=== PATIENT | male | born 1950 | race Two or more races ===

== ENCOUNTER 2023-12-18 16:09 | Inpatient (IN) | payer OTHER ==
[~2023-12-18] VITALS: Ht 180.3 cm; Wt 79.4 kg
[~2023-12-18 16:09] MED LIST: IRBESARTAN75 MG PO; LASIX20 MG; METHYLPREDNISOLO8 MG; METHYLPREDNISOLO8 MG PO; MORGIDOX100 MG; SYMBICORT 80/10.2 GM IH; THIAMINE HCL100 MG PO; TOPROL XL50 M1; TOPROL XL50 M1 PO; XARELTO20 MG PO
--- NOTE | 2023-12-18 16:46 | NUR ---
SE RECIBE PACIENTE EN AMBULANCIA ALERTA Y ORIENTADO EN PERSONA. FAMILIAR REFIERE QUE PRESENTA DEBILIDAD. SE MONITOREAN VS Y SE REALIZA EKG.
[2023-12-18] MEDS ORDERED: RINGERS SOLUTION,LACTATED 1,000 ML IV STA (18:06)
[2023-12-18] MEDS ORDERED: FLUMAZENIL 0.5 MG/5 ML ML IV STA (18:21)
[2023-12-18] MEDS ORDERED: NALOXONE HCL 0.4 MG/ML AMPUL IV STA (18:22)
--- NOTE | 2023-12-18 18:26 | NUR ---
PACIENTE EVALUADO POR DR. HUTCHINSON QUI[place] [facility], RN ELIZONDO EDUCA ACERCA DEL MISMO A FAMILIAR Y REFIERE ENTENDER. SE CANALIZA Y COLECTAN MUESTRAS DE LABORATORIO MEDIANTE MEDIDAS ASEPTICAS. SE ADMIONISTRAN MEDICAMENTOS RAHUL ORDEN MEDICA. SE COLCOA ROSA MEDIANTE MEDIDAS ESTERILES.
[2023-12-18] MEDS ORDERED: NALOXONE HCL 0.4 MG/ML AMPUL ONE (18:38)
[2023-12-18] MEDS ORDERED: FLUMAZENIL 0.5 MG/5 ML ML IV ONE (18:39)
[2023-12-18 18:50] LABS: HEMOGLOBIN 11.6 g/dL (13-16.00); MEAN CELL VOLUME 92.2 fL (80.0-100.00); MEAN CORPUSCULAR HEMOGLOBIN 33.4 pg (27.00-32.0); MEAN CORPUSCULAR HGB CONC 36.3 g/dl (32.0-36.0); PLATELET COUNT 394 K/uL (150-450); RED BLOOD COUNT 3.47 M/uL (4.00-6.00)
[2023-12-18 18:51] LABS: URINE APPEARANCE Cloudy; URINE BILIRRUBIN Negative (NEGATIVE); URINE BLOOD Negative; URINE COLOR Dark Yellow; URINE GLUCOSE Negative (NEGATIVE); URINE LEUKOCYTE Negative; URINE NITRATE Negative; URINE PROTEIN Negative (NEGATIVE)
[2023-12-18 18:52] LABS: URINE BACTERIA 117.1 uL (0.0-1933); URINE EPITHELIAL CELLS 9.2 uL (0.0-38.8); URINE RBC 9.1 uL (0.0-20.8); URINE WBC 16.6 uL (0.0-23.2)
[2023-12-18 18:54] LABS: ERYTHROCYTE SEDIMENTATION RATE 27 mm/hr
[2023-12-18 19:16] LABS: ALBUMIN 2.9 gm/dL (3.4-5.0); BILIRUBIN TOTAL 2.29 mg/dL (0.3-1.2); CALCIUM 8.7 mg/dL (8.5-10.1); CREATININE SERUM 0.83 mg/dL (0.70-1.30); GFR 90.57; GLOBULINA 3.8 G/DL (2.4-3.5); POTASSIUM 4.52 mEq/L (3.5-5.1); TOTAL PROTEIN 6.7 gm/dL (6.4-8.2)
[2023-12-18 19:22] LABS: INR 1.37; PROTHROMBIN TIME 14.1 SECONDS (9.0-11.5)
[2023-12-18 19:25] LABS: PARTIAL THROMBOPLASTIN TIME 42.1 SECONDS (22.0-34.0)
[2023-12-18] MEDS ORDERED: FUROsemide 20 MG/2 ML VIAL IV SCH (22:45)
[2023-12-18] MEDS ORDERED: 0.9 % SODIUM CHLORIDE 1,000 ML IV SCH (22:45)
[2023-12-18] MEDS ORDERED: ACETAMINOPHEN 500 MG GEL..CAP PO PRN (22:45)
[2023-12-18] MEDS ORDERED: FAMOTIDINE/PF 20 MG in 0.9 % SODIUM CHLORIDE 8 ML IV PUSH SCH (22:46)
[2023-12-18] MEDS ORDERED: levoFLOXacin IN DEXTROSE 5 % 150 ML IV SCH (22:46)
[2023-12-18] MEDS ORDERED: THIAMINE HCL 100 MG/ML 2 ML VIAL IV ONE (23:00)
[2023-12-19] MEDS ORDERED: FUROsemide 20 MG/2 ML VIAL ONE (00:40)
[2023-12-19] MEDS ORDERED: FAMOTIDINE/PF 20 MG/2 ML VIAL ONE ×2 (00:40→17:21)
[2023-12-19] MEDS ORDERED: THIAMINE HCL 100 MG/ML 2 ML VIAL ONE (00:40)
[2023-12-19 02:17] LABS: INR 1.37; PROTHROMBIN TIME 14.1 SECONDS (9.0-11.5)
[2023-12-19 02:18] LABS: PARTIAL THROMBOPLASTIN TIME 44.5 SECONDS (22.0-34.0)
[2023-12-19] MEDS ORDERED: RIVAROXABAN 20 MG TABLET PO SCH (09:00)
[2023-12-19] MEDS ORDERED: METOPROLOL SUCCINATE 50 MG TAB.SR.24H PO SCH (09:00)
[2023-12-19 09:48] LABS: CALCIUM 8.6 mg/dL (8.5-10.1); CREATININE SERUM 0.88 mg/dL (0.70-1.30); GFR 84.65; POTASSIUM 3.88 mEq/L (3.5-5.1)
[2023-12-19] MEDS ORDERED: CLINDAMYCIN PHOSPHATE 150 MG/ML (600mg) IV SCH (17:00)
[2023-12-19] MEDS ORDERED: LACTOBACILLUS ACIDOPHILUS 1 CAP CAP PO SCH (17:00)
[2023-12-19] MEDS ORDERED: CLINDAMYCIN PHOSPHATE 150 MG/ML (300mg) ONE (17:21)
[2023-12-19] MEDS ORDERED: LACTOBACILLUS ACIDOPHILUS 1 CAP CAP PO ONE (17:21)
[2023-12-19] MEDS ORDERED: FAMOTIDINE/PF 20 MG in 0.9 % SODIUM CHLORIDE 8 ML IV PUSH SCH (21:00)
[2023-12-20 05:19] LABS: HEMATOCRIT 30.1 % (39.0-48.0); MEAN CELL VOLUME 92.8 fL (80.0-100.00); MEAN CORPUSCULAR HEMOGLOBIN 33.8 pg (27.00-32.0); MEAN CORPUSCULAR HGB CONC 36.4 g/dl (32.0-36.0); PLATELET COUNT 315 K/uL (150-450); RED BLOOD COUNT 3.25 M/uL (4.00-6.00); RED CELL DISTRIBUTION WIDTH 13.5 % (11.5-14.5)
[2023-12-20 06:23] LABS: ALBUMIN 2.4 gm/dL (3.4-5.0); CALCIUM 8.4 mg/dL (8.5-10.1); CREATININE SERUM 0.72 mg/dL (0.70-1.30); GFR 106.71; GLOBULINA 3.4 G/DL (2.4-3.5); MAGNESIUM 1.7 mg/dL (1.8-2.4); PHOSPHOROUS 2.7 mg/dL (2.5-4.9); POTASSIUM 3.16 mEq/L (3.5-5.1); TOTAL PROTEIN 5.8 gm/dL (6.4-8.2)
[2023-12-20 06:28] LABS: C-REACTIVE PROTEIN 12.6 MG/DL (0.00-0.29)
[2023-12-20 08:47] LABS: URIC ACID 2.1 mg/dL (3.5-8.5)
[2023-12-20 08:57] LABS: TSH 1.11 uIU/mL (0.358-3.74)
[2023-12-20] MEDS ORDERED: FUROsemide 20 MG/2 ML VIAL IV SCH (09:00)
[2023-12-20] MEDS ORDERED: POTASSIUM CHLORIDE IN WATER 100 ML IV NR (15:15)
[2023-12-20] MEDS ORDERED: MAGNESIUM SULFATE 1,000 MG in 0.9 % SODIUM CHLORIDE 50 ML IV NR (16:30)
[2023-12-20] MEDS ORDERED: MAGNESIUM SULFATE 50% 1,000 MG/2 ML VIAL ONE ×2 (17:09→17:20)
[2023-12-20] MEDS ORDERED: LORazepam 2 MG/ML VIAL IV PUSH PRN (23:45)
[2023-12-21 07:54] LABS: ALBUMIN 2.6 gm/dL (3.4-5.0); CALCIUM 8.4 mg/dL (8.5-10.1); CREATININE SERUM 0.61 mg/dL (0.70-1.30); GFR 129.21; MAGNESIUM 2.1 mg/dL (1.8-2.4); PHOSPHOROUS 2.6 mg/dL (2.5-4.9); POTASSIUM 3.67 mEq/L (3.5-5.1)
[2023-12-21] MEDS ORDERED: HALOPERIDOL LACTATE 5 MG/ML AMPUL IV STA (12:48)
[2023-12-21] MEDS ORDERED: DIPHENHYDRAMINE HCL 50 MG/ML VIAL 1ML IV STA (12:48)
[2023-12-21] MEDS ORDERED: hydrALAZINE HCL 20 MG VIAL IV PRN (14:00)
[2023-12-21 14:49] LABS: ABG PO2 60.5 mmHg (80-100); ABG pCO2 29.4 mmHg (35-45); BASE EXCESS -0.9 mmol/l; BICARBONATE 21.4 mmol/l (23-25); SaO2 92.7 %; Tco2 22.3 mmol/l
[2023-12-21 14:50] LABS: allen test SATISFACTORY; o2 30 %; puncture site RADIAL RIGHT
[2023-12-21] MEDS ORDERED: NICOTINE 21MG/24HR PATCH.TD24 TD SCH (17:00)
[2023-12-21 17:41] LABS: ABG PH 7.488 (7.35-7.45); ABG PO2 63.6 mmHg (80-100); BASE EXCESS -1.2 mmol/l; SaO2 93.7 %
[2023-12-21 17:42] LABS: BICARBONATE 20.7 mmol/l (23-25); Tco2 21.6 mmol/l; allen test SATISFACTORY; o2 30 %; puncture site RADIAL LEFT
[2023-12-22 08:05] LABS: ALBUMIN 2.4 gm/dL (3.4-5.0); CALCIUM 8.4 mg/dL (8.5-10.1); CREATININE SERUM 0.71 mg/dL (0.70-1.30); GFR 108.45
[2023-12-22 08:33] LABS: POTASSIUM 3.82 mEq/L (3.5-5.1)
[2023-12-22 08:58] LABS: HEMATOCRIT 28.8 % (39.0-48.0); HEMOGLOBIN 10.5 g/dL (13-16.00); MEAN CELL VOLUME 91.9 fL (80.0-100.00); MEAN CORPUSCULAR HEMOGLOBIN 33.4 pg (27.00-32.0); MEAN CORPUSCULAR HGB CONC 36.4 g/dl (32.0-36.0); PLATELET COUNT 281 K/uL (150-450); RED BLOOD COUNT 3.14 M/uL (4.00-6.00); RED CELL DISTRIBUTION WIDTH 13.3 % (11.5-14.5)
[2023-12-22 09:16] LABS: ALBUMIN 2.3 gm/dL (3.4-5.0); BILIRUBIN TOTAL 1.99 mg/dL (0.3-1.2); CALCIUM 8.2 mg/dL (8.5-10.1); CREATININE SERUM 0.54 mg/dL (0.70-1.30); GFR 148.73; GLOBULINA 3.3 G/DL (2.4-3.5); MAGNESIUM 1.7 mg/dL (1.8-2.4); PHOSPHOROUS 2.8 mg/dL (2.5-4.9); POTASSIUM 3.08 mEq/L (3.5-5.1); TOTAL PROTEIN 5.6 gm/dL (6.4-8.2)
[2023-12-22 09:18] LABS: ABG PH 7.489 (7.35-7.45); ABG PO2 102.7 mmHg (80-100); ABG pCO2 29.1 mmHg (35-45); BASE EXCESS -0.4 mmol/l; BICARBONATE 21.7 mmol/l (23-25); SaO2 98.4 %; Tco2 22.6 mmol/l
[2023-12-22 09:19] LABS: allen test SATISFACTORY; o2 40 %; puncture site RADIAL RIGHT
[2023-12-22] MEDS ORDERED: MAGNESIUM SULFATE/D5W 100 ML IV NR (09:45)
[2023-12-22] MEDS ORDERED: POTASSIUM CHLORIDE IN WATER 100 ML IV NR (09:45)
[2023-12-22] MEDS ORDERED: DILTIAZEM HCL 50 MG/10 ML VIAL IV ONE (17:45)
[2023-12-22] MEDS ORDERED: DILTIAZEM HCL 125 MG in 0.9 % SODIUM CHLORIDE 100 ML IV SCH (17:45)
[2023-12-23] MEDS ORDERED: METOPROLOL TARTRATE 50 MG TABLET PO SCH ×2 (01:00→09:00)
[2023-12-24 07:02] LABS: HEMATOCRIT 27.7 % (39.0-48.0); MEAN CELL VOLUME 92.7 fL (80.0-100.00); MEAN CORPUSCULAR HEMOGLOBIN 33.5 pg (27.00-32.0); MEAN CORPUSCULAR HGB CONC 36.1 g/dl (32.0-36.0); PLATELET COUNT 229 K/uL (150-450); RED BLOOD COUNT 2.99 M/uL (4.00-6.00); RED CELL DISTRIBUTION WIDTH 13.8 % (11.5-14.5)
[2023-12-24 07:50] LABS: ALBUMIN 2.3 gm/dL (3.4-5.0); BILIRUBIN TOTAL 2.24 mg/dL (0.3-1.2); CALCIUM 8.3 mg/dL (8.5-10.1); CREATININE SERUM 0.68 mg/dL (0.70-1.30); GFR 113.99; GLOBULINA 3.1 G/DL (2.4-3.5); MAGNESIUM 2.1 mg/dL (1.8-2.4); PHOSPHOROUS 4.4 mg/dL (2.5-4.9); POTASSIUM 3.69 mEq/L (3.5-5.1); TOTAL PROTEIN 5.4 gm/dL (6.4-8.2)
[2023-12-24 07:51] LABS: C-REACTIVE PROTEIN 18.8 MG/DL (0.00-0.29)
[2023-12-24 07:59] LABS: ABG PH 7.471 (7.35-7.45); ABG PO2 70.2 mmHg (80-100); ABG pCO2 30.4 mmHg (35-45); BASE EXCESS -0.9 mmol/l; BICARBONATE 21.6 mmol/l (23-25)
[2023-12-24 08:00] LABS: Tco2 22.6 mmol/l; allen test SATISFACTORY; o2 40 %; puncture site RADIAL RIGHT
[2023-12-24] MEDS ORDERED: ENOXAPARIN SODIUM 80 MG/0.8 ML SYRINGE SUBCUTANEO SCH (09:02)
[2023-12-24] MEDS ORDERED: THIAMINE HCL 100 MG/ML 2 ML VIAL IV SCH (09:49)
[2023-12-24] MEDS ORDERED: NICOTINE 21MG/24HR PATCH.TD24 TD SCH (17:00)
[2023-12-25 07:14] LABS: URINE APPEARANCE Clear; URINE BILIRRUBIN Small (NEGATIVE); URINE BLOOD Large; URINE COLOR Orange; URINE GLUCOSE Negative (NEGATIVE); URINE LEUKOCYTE Trace; URINE NITRATE Negative
[2023-12-25 07:15] LABS: URINE BACTERIA 27.7 uL (0.0-1933); URINE EPITHELIAL CELLS 20.7 uL (0.0-38.8); URINE RBC 459.9 uL (0.0-20.8)
[2023-12-25 07:38] LABS: URINE PROTEIN 100 (NEGATIVE)
[2023-12-25 07:39] LABS: URINE MUCUS MODERATE
[2023-12-25 10:11] LABS: ABG PH 7.493 (7.35-7.45); ABG pCO2 27.5 mmHg (35-45)
[2023-12-25 10:12] LABS: ABG PO2 52.6 mmHg (80-100); BASE EXCESS -1.2 mmol/l; BICARBONATE 20.6 mmol/l (23-25); SaO2 89.8 %; Tco2 21.4 mmol/l; allen test SATISFACTORY; o2 50 %; puncture site RADIAL RIGHT
[2023-12-25 10:42] LABS: HEMATOCRIT 28.4 % (39.0-48.0); HEMOGLOBIN 10.1 g/dL (13-16.00); MEAN CELL VOLUME 93.1 fL (80.0-100.00); MEAN CORPUSCULAR HGB CONC 35.4 g/dl (32.0-36.0); PLATELET COUNT 171 K/uL (150-450); RED BLOOD COUNT 3.05 M/uL (4.00-6.00); RED CELL DISTRIBUTION WIDTH 13.8 % (11.5-14.5)
[2023-12-25 11:29] LABS: ALBUMIN 2.2 gm/dL (3.4-5.0); BILIRUBIN TOTAL 1.83 mg/dL (0.3-1.2); CALCIUM 8.6 mg/dL (8.5-10.1); CREATININE SERUM 0.62 mg/dL (0.70-1.30); GFR 126.81; GLOBULINA 3.6 G/DL (2.4-3.5); MAGNESIUM 2.1 mg/dL (1.8-2.4); PHOSPHOROUS 3.8 mg/dL (2.5-4.9); POTASSIUM 3.02 mEq/L (3.5-5.1); TOTAL PROTEIN 5.8 gm/dL (6.4-8.2)
[2023-12-25] MEDS ORDERED: MEROPENEM 500 MG/VIAL VIAL IV SCH (18:00)
[2023-12-25] MEDS ORDERED: VANCOMYCIN HCL 1,000 MG VIAL IV SCH (21:00)
[2023-12-26] MEDS ORDERED: LEVALBUTEROL HCL 0.63 MG/3 ML SOLUTION IH SCH (09:03)
[2023-12-26] MEDS ORDERED: METOPROLOL TARTRATE 25 MG TABLET PO SCH (17:00)
[2023-12-26] MEDS ORDERED: METOPROLOL TARTRATE 100 MG TABLET PO SCH (17:00)
[2023-12-26] MEDS ORDERED: CHLORDIAZEPOXIDE HCL 25 MG CAPSULE PO SCH (18:37)
[2023-12-27] MEDS ORDERED: THIAMINE HCL 100 MG TABLET PO SCH (09:00)
[2023-12-27] MEDS ORDERED: IPRATROPIUM BROMIDE 0.5 MG/2.5 ML AMPUL.NEB IH SCH (09:00)
[2023-12-27 16:02] LABS: CALCIUM 8.3 mg/dL (8.5-10.1); CREATININE SERUM 0.58 mg/dL (0.70-1.30); GFR 136.96
[2023-12-27 16:12] LABS: POTASSIUM 2.38 mEq/L (3.5-5.1)
[2023-12-27] MEDS ORDERED: AA 5 %/CALCIUM/LYTES/DEXT 20 % 2,000 ML CENTRAL SCH (17:00)
[2023-12-27] MEDS ORDERED: POTASSIUM CHLORIDE IN WATER 40 MEQ/100 ML PIGGYBAG IV SCH (17:00)
[2023-12-28 07:25] LABS: ALBUMIN 2.3 gm/dL (3.4-5.0); CALCIUM 8.4 mg/dL (8.5-10.1); CREATININE SERUM 0.56 mg/dL (0.70-1.30); GFR 142.62; MAGNESIUM 2.1 mg/dL (1.8-2.4); PHOSPHOROUS 2.2 mg/dL (2.5-4.9); POTASSIUM 3.24 mEq/L (3.5-5.1)
[2023-12-28 10:35] LABS: MAGNESIUM 2.3 mg/dL (1.8-2.4); PHOSPHOROUS 2.5 mg/dL (2.5-4.9)
[2023-12-28] MEDS ORDERED: POTASSIUM CHLORIDE IN WATER 100 ML IV SCH (12:00)
[2023-12-28] MEDS ORDERED: DILTIAZEM HCL 125 MG in 0.9 % SODIUM CHLORIDE 100 ML IV SCH (19:00)
[2023-12-28] MEDS ORDERED: LORazepam 2 MG/ML VIAL IV PUSH PRN (20:45)
[2023-12-29] MEDS ORDERED: FUROsemide 20 MG/2 ML VIAL IV STA (08:38)
[2023-12-29] MEDS ORDERED: IPRATROPIUM BROMIDE 0.5 MG/2.5 ML AMPUL.NEB IH SCH (12:00)
[2023-12-29 14:10] LABS: ABG PH 7.358 (7.35-7.45); ABG PO2 83.9 mmHg (80-100); ABG pCO2 51.3 mmHg (35-45); SaO2 95.8 %
[2023-12-29 14:12] LABS: BASE EXCESS 1.7 mmol/l; BICARBONATE 28.2 mmol/l (23-25); Tco2 29.8 mmol/l
[2023-12-29 14:14] LABS: allen test SATISFACTORY; o2 40 %; puncture site RADIAL RIGHT
[2023-12-29 18:06] LABS: ABG PH 7.389 (7.35-7.45); ABG PO2 162.5 mmHg (80-100); ABG pCO2 49.7 mmHg (35-45); BASE EXCESS 3.3 mmol/l; BICARBONATE 29.3 mmol/l (23-25); SaO2 99.4 %; Tco2 30.8 mmol/l
[2023-12-29 21:03] LABS: allen test SATISFACTORY; o2 100 %; puncture site RADIAL RIGHT
[2023-12-30 06:54] LABS: ALBUMIN 1.9 gm/dL (3.4-5.0); BILIRUBIN TOTAL 0.64 mg/dL (0.3-1.2); BILIRUBIN,CONJUGATED 0.33 mg/dL (0.0-0.2); BILIRUBIN,UNCONJUGATED 0.31 mg/dL (0.0-0.6); CALCIUM 8.2 mg/dL (8.5-10.1); CREATININE SERUM 0.47 mg/dL (0.70-1.30); GFR 174.57; GLOBULINA 3.1 G/DL (2.4-3.5); MAGNESIUM 2.3 mg/dL (1.8-2.4); POTASSIUM 3.29 mEq/L (3.5-5.1)
[2023-12-30 07:20] LABS: HEMATOCRIT 29.3 % (39.0-48.0); MEAN CELL VOLUME 96.4 fL (80.0-100.00); MEAN CORPUSCULAR HGB CONC 34.2 g/dl (32.0-36.0); RED BLOOD COUNT 3.03 M/uL (4.00-6.00); RED CELL DISTRIBUTION WIDTH 13.8 % (11.5-14.5)
[2023-12-30 07:33] LABS: PLATELET COUNT 61 K/uL (150-450)
[2023-12-30] MEDS ORDERED: FUROsemide 20 MG/2 ML VIAL IV STA (07:47)
[2023-12-30 07:48] LABS: INR 1.67
[2023-12-30 07:55] LABS: PARTIAL THROMBOPLASTIN TIME 56.4 SECONDS (22.0-34.0); PROTHROMBIN TIME 16.9 SECONDS (9.0-11.5)
[2023-12-30 08:27] LABS: ABG PH 7.332 (7.35-7.45)
[2023-12-30 08:27] LABS: UREA CLEARANCE 39.9 ML/MIN
[2023-12-30 08:29] LABS: ABG PO2 194.4 mmHg (80-100); BASE EXCESS 3.8 mmol/l; BICARBONATE 31.6 mmol/l (23-25); SaO2 99.6 %; Tco2 33.5 mmol/l; o2 100 %
[2023-12-30 08:30] LABS: allen test SATISFACTORY; puncture site RADIAL RIGHT
[2023-12-30] MEDS ORDERED: SODIUM CHLORIDE 0.45 % 1,000 ML IV SCH (11:14)
[2023-12-30] MEDS ORDERED: ANIDULAFUNGIN 100 MG VIAL IV NR (15:15)
[2023-12-31 06:57] LABS: HEMATOCRIT 30.3 % (39.0-48.0); HEMOGLOBIN 9.4 g/dL (13-16.00); MEAN CELL VOLUME 108.2 fL (80.0-100.00); MEAN CORPUSCULAR HEMOGLOBIN 33.7 pg (27.00-32.0); MEAN CORPUSCULAR HGB CONC 31.2 g/dl (32.0-36.0)
[2023-12-31 07:09] LABS: PLATELET COUNT 47 K/uL (150-450)
[2023-12-31] MEDS ORDERED: FUROsemide 20 MG/2 ML VIAL IV STA (07:32)
[2023-12-31 08:49] LABS: MANUAL PLATELET COUNT 104
[2023-12-31] MEDS ORDERED: MIDAZOLAM HCL 50 MG in 0.9 % SODIUM CHLORIDE 50 ML IV SCH (09:15)
[2023-12-31] MEDS ORDERED: CARBOXYMETHYLCELLULOSE SODIUM 1 EACH DROPERETTE OP SCH ×2 (10:35→17:00)
[2023-12-31 11:10] LABS: ABG PH 7.232 (7.35-7.45)
[2023-12-31 11:11] LABS: ABG PO2 127.3 mmHg (80-100); ABG pCO2 85.7 mmHg (35-45); BASE EXCESS 4.4 mmol/l; BICARBONATE 35.3 mmol/l (23-25); SaO2 98.1 %; Tco2 37.9 mmol/l
[2023-12-31 11:12] LABS: allen test SATISFACTORY; o2 100 %; puncture site RADIAL RIGHT
[2023-12-31 11:18] LABS: ABG PH 7.299 (7.35-7.45)
[2023-12-31 11:19] LABS: ABG PO2 162.3 mmHg (80-100); ABG pCO2 69.5 mmHg (35-45); BASE EXCESS 4.4 mmol/l; BICARBONATE 33.4 mmol/l (23-25); SaO2 99.2 %; Tco2 35.5 mmol/l
[2023-12-31 11:21] LABS: allen test SATISFACTORY; o2 100 %; puncture site RADIAL RIGHT
[2023-12-31 11:45] LABS: PROCALCITONIN 0.433 ng/ml (0.020-0.080)
[2023-12-31 11:46] LABS: CORTISOL 19.93 ug/dl
[2023-12-31] MEDS ORDERED: ANIDULAFUNGIN 100 MG VIAL IV SCH (12:00)
[2023-12-31] MEDS ORDERED: MIDAZOLAM HCL 2 MG/2 ML VIAL IV ONE (12:15)
[2023-12-31] MEDS ORDERED: PANTOPRAZOLE SODIUM 80 MG in 0.9 % SODIUM CHLORIDE 100 ML IV SCH (14:45)
[2023-12-31] MEDS ORDERED: MIDAZOLAM HCL 100 MG in 0.9 % SODIUM CHLORIDE 100 ML IV SCH (15:15)
[2023-12-31] MEDS ORDERED: CHLORHEXIDINE GLUCONATE 15ML BRUSH KIT MM SCH ×2 (17:00)
[2023-12-31] MEDS ORDERED: SULFAMETHOXAZOLE/TRIMETHOPRIM 16 MG/ML 10ML VIAL IV SCH (18:00)
[2024-01-01 06:56] LABS: HEMATOCRIT 25.5 % (39.0-48.0); MEAN CELL VOLUME 96.8 fL (80.0-100.00); MEAN CORPUSCULAR HGB CONC 34.5 g/dl (32.0-36.0); RED BLOOD COUNT 2.64 M/uL (4.00-6.00); RED CELL DISTRIBUTION WIDTH 14.3 % (11.5-14.5)
[2024-01-01 07:06] LABS: HEMOGLOBIN 8.8 g/dL (13-16.00); MEAN CORPUSCULAR HEMOGLOBIN 33.3 pg (27.00-32.0)
[2024-01-01 07:07] LABS: PLATELET COUNT 72 K/uL (150-450)
[2024-01-01 08:26] LABS: ABG PH 7.284 (7.35-7.45); BASE EXCESS 3.6 mmol/l; BICARBONATE 32.7 mmol/l (23-25); SaO2 96.2 %; Tco2 34.9 mmol/l
[2024-01-01 08:48] LABS: ABG pCO2 70.6 mmHg (35-45)
[2024-01-01 08:49] LABS: allen test SATISFACTORY; o2 100 %; puncture site RADIAL RIGHT
[2024-01-01] MEDS ORDERED: MIDAZOLAM HCL 50 MG in 0.9 % SODIUM CHLORIDE 100 ML IV SCH (09:15)
[2024-01-01] MEDS ORDERED: FUROsemide 20 MG/2 ML VIAL IV SCH (15:15)
[2024-01-01] MEDS ORDERED: MULTIVIT INFUSN,ADULT 4,VIT K 10 ML VIAL IV SCH (21:00)
[2024-01-01 21:28] LABS: FERRITIN 2505.6 NG/ML (26-388)
[2024-01-02 08:43] LABS: ABG PH 7.219 (7.35-7.45)
[2024-01-02 08:44] LABS: ABG PO2 77.1 mmHg (80-100); BASE EXCESS -0.5 mmol/l; BICARBONATE 29.5 mmol/l (23-25); SaO2 91.8 %; Tco2 31.8 mmol/l; allen test SATISFACTORY; o2 100 %; puncture site RADIAL LEFT
[2024-01-02 09:34] LABS: HEMATOCRIT 32.4 % (39.0-48.0); MEAN CELL VOLUME 92.5 fL (80.0-100.00); MEAN CORPUSCULAR HEMOGLOBIN 31.5 pg (27.00-32.0); RED CELL DISTRIBUTION WIDTH 16.8 % (11.5-14.5)
[2024-01-02 09:35] LABS: PLATELET COUNT 32 K/uL (150-450)
[2024-01-02 10:22] LABS: ALBUMIN 1.5 gm/dL (3.4-5.0); BILIRUBIN TOTAL 0.47 mg/dL (0.3-1.2); CALCIUM 8.1 mg/dL (8.5-10.1); CREATININE SERUM 1.6 mg/dL (0.70-1.30); GFR 42.46; GLOBULINA 3.6 G/DL (2.4-3.5); MAGNESIUM 2.6 mg/dL (1.8-2.4); PHOSPHOROUS 5.3 mg/dL (2.5-4.9); POTASSIUM 4.65 mEq/L (3.5-5.1); TOTAL PROTEIN 5.1 gm/dL (6.4-8.2)
[2024-01-02 10:27] LABS: C-REACTIVE PROTEIN 11.8 MG/DL (0.00-0.29)
[2024-01-02 14:47] LABS: FOLIC ACID < 2.00 ng/ml (4.78-20)
[2024-01-02] MEDS ORDERED: NOREPINEPHRINE BITARTRATE 8 MG in DEXTROSE 5 % IN WATER 250 ML IV SCH (19:15)
[2024-01-02 20:47] LABS: HEMATOCRIT 31.9 % (39.0-48.0); MEAN CELL VOLUME 93.3 fL (80.0-100.00); MEAN CORPUSCULAR HEMOGLOBIN 32.1 pg (27.00-32.0); MEAN CORPUSCULAR HGB CONC 34.5 g/dl (32.0-36.0); RED BLOOD COUNT 3.42 M/uL (4.00-6.00); RED CELL DISTRIBUTION WIDTH 16.9 % (11.5-14.5)
[2024-01-02 20:48] LABS: PLATELET COUNT 37 K/uL (150-450)
[2024-01-02] MEDS ORDERED: SOD FERRIC GLUC COMPLX/SUCROSE 62.5 MG/5 ML AMPUL IV SCH (21:00)
[2024-01-02 22:36] LABS: ALBUMIN 1.6 gm/dL (3.4-5.0); BILIRUBIN TOTAL 0.46 mg/dL (0.3-1.2); CALCIUM 8.3 mg/dL (8.5-10.1); CREATININE SERUM 2.11 mg/dL (0.70-1.30); GFR 30.86; GLOBULINA 3.7 G/DL (2.4-3.5); POTASSIUM 4.98 mEq/L (3.5-5.1); TOTAL PROTEIN 5.3 gm/dL (6.4-8.2)
[2024-01-03] MEDS ORDERED: MIDAZOLAM HCL 2 MG/2 ML VIAL IV ONE (07:30)
[2024-01-03] MEDS ORDERED: PHENYLEPHRINE HCL 20 MG in 0.9 % SODIUM CHLORIDE 250 ML IV SCH (07:45)
[2024-01-03 10:36] LABS: ABG PH 7.068 (7.35-7.45); ABG PO2 64.8 mmHg (80-100); ABG pCO2 85.7 mmHg (35-45)
[2024-01-03 10:37] LABS: BASE EXCESS -8.1 mmol/l; BICARBONATE 24.2 mmol/l (23-25); SaO2 79.6 %; Tco2 26.8 mmol/l; allen test SATISFACTORY; o2 100 %; puncture site RADIAL RIGHT
[2024-01-03] MEDS ORDERED: ATROPINE SULFATE 0.1 MG/ML DISP.SYRIN IV ONE (18:05)
[2024-01-03 18:25] LABS: HEMATOCRIT 30.1 % (39.0-48.0); HEMOGLOBIN 9.7 g/dL (13-16.00); MEAN CELL VOLUME 99.3 fL (80.0-100.00); MEAN CORPUSCULAR HGB CONC 32.2 g/dl (32.0-36.0); RED BLOOD COUNT 3.03 M/uL (4.00-6.00); RED CELL DISTRIBUTION WIDTH 19.1 % (11.5-14.5)
[2024-01-03 19:05] LABS: ALBUMIN 1.3 gm/dL (3.4-5.0); BILIRUBIN TOTAL 0.52 mg/dL (0.3-1.2); CALCIUM 8.1 mg/dL (8.5-10.1); CREATININE SERUM 3.2 mg/dL (0.70-1.30); GFR 19.08; GLOBULINA 3.2 G/DL (2.4-3.5); MAGNESIUM 2.9 mg/dL (1.8-2.4); TOTAL PROTEIN 4.5 gm/dL (6.4-8.2)
[2024-01-03 19:08] LABS: POTASSIUM 6.62 mEq/L (3.5-5.1)
[2024-01-03 19:09] LABS: PLATELET COUNT 24 K/uL (150-450)
[2024-01-03 19:32] LABS: PHOSPHOROUS 8.1 mg/dL (2.5-4.9)
[2024-01-03] MEDS ORDERED: DEXTROSE 50 % IN WATER 0.5 G/ML DISP.SYRIN IV ONE (20:40)
[2024-01-03] MEDS ORDERED: CALCIUM GLUCONATE 100 MG/ML VIAL IV ONE (20:40)
[2024-01-03] MEDS ORDERED: INSULIN REGULAR, HUMAN 1,000 UNIT/10 ML UNITS IV ONE (20:40)
[2024-01-03] MEDS ORDERED: CISATRACURIUM 10 MG/5 ML IV SCH ×2 (20:45→21:45)
[2024-01-03] MEDS ORDERED: SODIUM POLYSTYRENE SULFONATE 30GM/8 TSP PO SCH (21:00)
[2024-01-03] MEDS ORDERED: DOPamine HCL IN DEXTROSE 5 % 250 ML IV SCH (22:00)
== END 2024-01-04 05:09 | disposition expired | DRG 871 ==
LOC: ER 16:09 → ICU-2 22:47 → ICU 12-20 22:10
PROVIDERS: General Practice; Internal Medicine; Internal Medicine Critical Care Medicine; Internal Medicine Hematology & Oncology; Internal Medicine Infectious Disease; Internal Medicine Nephrology; Internal Medicine Pulmonary Disease; ADMIT Internal Medicine; ATTEND Internal Medicine
PROC: B246ZZZ Ultrasonography of Right and Left Heart (ICD-10-PCS; 2023-12-18)
PROC: B020ZZZ Computerized Tomography (CT Scan) of Brain (ICD-10-PCS; 2023-12-18)
PROC: BB24ZZZ Computerized Tomography (CT Scan) of Bilateral Lungs (ICD-10-PCS; 2023-12-18)
PROC: BW21YZZ Computerized Tomography (CT Scan) of Abdomen and Pelvis using Other Contrast (ICD-10-PCS; 2023-12-22)
PROC: 02HV33Z Insertion of Infusion Device into Superior Vena Cava, Percutaneous Approach (ICD-10-PCS; 2023-12-24)
PROC: 30233N1 Transfusion of Nonautologous Red Blood Cells into Peripheral Vein, Percutaneous Approach (ICD-10-PCS; 2023-12-24)
PROC: 3E04329 Introduction of Other Anti-infective into Central Vein, Percutaneous Approach (ICD-10-PCS; 2023-12-24)
PROC: 3E0F7GC Introduction of Other Therapeutic Substance into Respiratory Tract, Via Natural or Artificial Opening (ICD-10-PCS; 2023-12-26)
PROC: 3E0336Z Introduction of Nutritional Substance into Peripheral Vein, Percutaneous Approach (ICD-10-PCS; 2023-12-27)
PROC: 5A1945Z Respiratory Ventilation, 24-96 Consecutive Hours (ICD-10-PCS; principal; 2024-01-01)
PROC: 0BH17EZ Insertion of Endotracheal Airway into Trachea, Via Natural or Artificial Opening (ICD-10-PCS; 2024-01-01)
DX: A41.9 Sepsis, unspecified organism (principal); B37.1 Pulmonary candidiasis; G93.41 Metabolic encephalopathy; J15.7 Pneumonia due to Mycoplasma pneumoniae; J96.02 Acute respiratory failure with hypercapnia; E22.2 Syndrome of inappropriate secretion of antidiuretic hormone; I48.20 Chronic atrial fibrillation, unspecified; J84.9 Interstitial pulmonary disease, unspecified; F03.911 Unspecified dementia, unspecified severity, with agitation; F10.27 Alcohol dependence with alcohol-induced persisting dementia; D68.8 Other specified coagulation defects; R57.9 Shock, unspecified; C34.90 Malignant neoplasm of unspecified part of unspecified bronchus or lung; C61 Malignant neoplasm of prostate; J44.9 Chronic obstructive pulmonary disease, unspecified; F17.210 Nicotine dependence, cigarettes, uncomplicated; E87.6 Hypokalemia; E83.42 Hypomagnesemia; R13.10 Dysphagia, unspecified; D69.6 Thrombocytopenia, unspecified; D51.9 Vitamin B12 deficiency anemia, unspecified; G47.33 Obstructive sleep apnea (adult) (pediatric); Z79.01 Long term (current) use of anticoagulants; Z74.01 Bed confinement status